=== PATIENT | male | born 1950 | race African-American/Black ===

== ENCOUNTER 2020-07-31 13:26 | Inpatient (IN) ==
[2020-07-31 13:51] LABS: Basophils % 0.1 % (0.0-0.8); Hematocrit 47.2 VOL% (42.0-52.0); Hemoglobin 15.5 GM/DL (14.0-18.0); Immature Granulocytes Absolute 0.11 #; Lymphocytes # 0.6 10*3/uL (1.4-4.0); Lymphocytes % 5.4 % (21.2-54.2); Mean Corpuscular HGB Conc 32.8 GM/DL (32-36); Mean Corpuscular Volume 87.9 FL (87-102); Mean Platelet Volume 11.7 FL (9.6-12.0); Neutrophils % 80.5 % (38.7-73.9); Platelet Count 245 T/CUMM (130-400); Red Blood Count 5.37 MC/CUMM (3.8-5.5); Red Cell Distribution Width 15.7 % (9.3-17.3); White Blood Count 11.2 T/CUMM (4-12)
[2020-07-31] MEDS ORDERED: SODIUM CHLORIDE 0.9% 1,000 ML IV STA ×2 (13:59→15:03)
[2020-07-31 14:33] LABS: Albumin 2.5 G/DL (3.4-5.0); Bilirubin,Total 0.8 MG/DL (0.2-1.0); Calcium 8.8 MG/DL (8.5-10.1); Total Protein 7.5 G/DL (6.4-8.3)
[2020-07-31 15:06] LABS: Osmolality,Calculated 378.1 MOS/KG (273-304)
[2020-07-31 15:24] LABS: INR 1.2; Partial Thromboplastin Time 27.4 SECS (23.9-33.8)
[2020-07-31] MEDS ORDERED: SODIUM BICARBONATE 50 MEQ/50 ML VIAL IV STA (15:41)
[2020-07-31] MEDS ORDERED: INSULIN REGULAR 100 UNIT/ML IV STA (15:41)
[2020-07-31] MEDS ORDERED: DEXTROSE 50% 25 GM/50 ML VIAL IV STA (15:41)
[2020-07-31] MEDS ORDERED: SODIUM CHLORIDE 0.9% 1,000 ML IV ONE (15:43)
[2020-07-31] MEDS ORDERED: ONDANSETRON 4 MG/2 ML VIAL IV PRN (15:48)
[2020-07-31] MEDS ORDERED: ACETAMINOPHEN 325 MG TABLET PO PRN (15:48)
[2020-07-31 15:50] LABS: Ferritin 945.7 ng/ml (26-388)
[2020-07-31] MEDS ORDERED: DEXTROSE 50% 25 GM/50 ML SYRINGE IV ONE (15:52)
[2020-07-31] MEDS ORDERED: GLUCAGON 1 MG VIAL IM PRN (15:54)
[2020-07-31] MEDS ORDERED: DEXTROSE 50% 25 GM/50 ML VIAL IV PRN (15:54)
[2020-07-31 15:55] LABS: Bilirubin,Urine Negative (Negative); Blood, Urine Moderate mg/dL (Negative); Glucose,Urine (UA) 150 mg/dL (Negative); Ketones,Urine Negative (Negative); Nitrite,Urine Negative (Negative); Protein,Urine >=500 MG/DL; RBC,Urine 40 /HPF (0-4); Squamous Epithelial Cell,Urine Occasional /HPF (0-10); Urine Appearance CLOUDY (Clear); Urine Color Amber (Yellow); Urine Urobilinogen < 2.0 EU/DL (0.2-1.0); WBC,Urine 5 /HPF (0-6)
[2020-07-31] MEDS ORDERED: CALCIUM GLUCONATE 2,000 MG in SODIUM CHLORIDE 0.9% 100 ML IV ONE (16:00)
[2020-07-31 16:37] LABS: Hepatitis B Core IgM Quant 0.21 Index; Hepatitis B Surface Ag Quant < 0.10 Index; Hepatitis B Surface Ag Result Negative (Negative); Hepatitis C Virus Ab Quant 0.05 Index; Hepatitis C Virus Ab Result Negative (Negative)
[2020-07-31] MEDS: SODIUM POLYSTYRENE SULFATE 15 GM/60 ML BOTTLE PO STA ×2 (17:01→17:55)
[2020-07-31] MEDS: INSULIN LISPRO 100 UNIT/ML SUBCUT SCH ×2 (18:03→21:22)
[2020-07-31] MEDS: SODIUM BICARB INJ 100 MEQ in STERILE WATER INJ 1,000 ML IV SCH (19:32)
[2020-07-31] MEDS: SODIUM CHLORIDE 0.9% 1,000 ML IV SCH (21:22)
[2020-07-31] MEDS: ENOXAPARIN 30 MG/0.3 ML SYRINGE SUBCUT SCH (21:22)
[2020-07-31 23:04] LABS: Calcium 8.4 MG/DL (8.5-10.1)
[2020-07-31 23:21] LABS: Osmolality,Calculated 357.6 MOS/KG (273-304)
[2020-08-01 05:55] LABS: Basophils % 0.2 % (0.0-0.8); Eosinophils % 0.1 % (0.00-10.9); Hematocrit 44.9 VOL% (42.0-52.0); Hemoglobin 14.5 GM/DL (14.0-18.0); Immature Granulocytes % 0.6 %; Immature Granulocytes Absolute 0.08 #; Lymphocytes # 0.6 10*3/uL (1.4-4.0); Lymphocytes % 4.8 % (21.2-54.2); Mean Corpuscular HGB Conc 32.3 GM/DL (32-36); Mean Corpuscular Volume 88.9 FL (87-102); Mean Platelet Volume 11.2 FL (9.6-12.0); Monocytes % 16.1 % (1.7-12.7); Neutrophils % 78.2 % (38.7-73.9); Platelet Count 165 T/CUMM (130-400); Red Blood Count 5.05 MC/CUMM (3.8-5.5); Red Cell Distribution Width 15.8 % (9.3-17.3); White Blood Count 12.7 T/CUMM (4-12)
[2020-08-01 06:51] LABS: Lymphocytes 10 % (20-55); Segmented Neutrophils 75 % (50-85); Total Cells Counted 100
[2020-08-01 06:52] LABS: Acanthocytes Few; Hypochromasia 1+; Microcytosis 1+; Ovalocytes Few
[2020-08-01 06:53] LABS: Platelet Estimate Adequate; Target Cells Slight
[2020-08-01] MEDS: INSULIN LISPRO 100 UNIT/ML SUBCUT SCH ×4 (08:00→21:08)
[2020-08-01] MEDS ORDERED: DEXTROSE 50% 25 GM/50 ML VIAL IV PRN (09:32)
[2020-08-01] MEDS ORDERED: GLUCAGON 1 MG VIAL IM PRN (09:32)
[2020-08-01] MEDS ORDERED: SODIUM BICARB INJ 50 MEQ in DEXTROSE 5% 1,000 ML IV SCH (10:00)
[2020-08-01] MEDS: SODIUM CHLORIDE 0.9% 1,000 ML IV SCH (10:14)
[2020-08-01 10:23] LABS: Calcium 8.3 MG/DL (8.5-10.1); Osmolality,Calculated 382.4 MOS/KG (273-304)
[2020-08-01] MEDS: PANTOPRAZOLE 40 MG VIAL IV SCH (10:53)
[2020-08-01 11:08] LABS: Basophils % 0.1 % (0.0-0.8); Eosinophils % 0.1 % (0.00-10.9); Hematocrit 38.1 VOL% (42.0-52.0); Hemoglobin 12.6 GM/DL (14.0-18.0); Immature Granulocytes % 0.8 %; Lymphocytes # 0.6 10*3/uL (1.4-4.0); Lymphocytes % 4.5 % (21.2-54.2); Mean Corpuscular HGB Conc 33.1 GM/DL (32-36); Mean Corpuscular Volume 87.6 FL (87-102); Mean Platelet Volume 10.2 FL (9.6-12.0); Monocytes % 15.2 % (1.7-12.7); Neutrophils % 79.3 % (38.7-73.9); Platelet Count 149 T/CUMM (130-400); Red Blood Count 4.35 MC/CUMM (3.8-5.5); Red Cell Distribution Width 15.8 % (9.3-17.3); White Blood Count 12.1 T/CUMM (4-12)
[2020-08-01 11:33] LABS: Hypochromasia 1+; Lymphocytes 9 % (20-55); Nucleated Red Blood Cells 2 (0-5); Segmented Neutrophils 84 % (50-85); Total Cells Counted 100
[2020-08-01 11:34] LABS: Acanthocytes Few; Microcytosis 1+; Ovalocytes Few; Platelet Estimate Adequate
[2020-08-01] MEDS: SODIUM BICARB INJ 100 MEQ in STERILE WATER INJ 1,000 ML IV SCH (11:48)
[2020-08-01] MEDS ORDERED: HEPARIN 10,000 UNIT/10 ML VIAL IV PRN (15:00)
[2020-08-01] MEDS ORDERED: SODIUM CHLORIDE 0.45% 1,000 ML IV ONE (16:00)
[2020-08-01] MEDS: MENTHOL/ZINC OXIDE OINT 71 GM JAR TOP SCH ×2 (17:00→21:16)
[2020-08-01] MEDS: ENOXAPARIN 30 MG/0.3 ML SYRINGE SUBCUT SCH (21:16)
[2020-08-02] MEDS: SODIUM BICARB INJ 100 MEQ in STERILE WATER INJ 1,000 ML IV SCH ×2 (02:58→20:22)
[2020-08-02 05:45] LABS: Basophils % 0.3 % (0.0-0.8); Eosinophils # 0.1 10*3/uL (0.0-0.87); Eosinophils % 0.5 % (0.00-10.9); Hematocrit 33.7 VOL% (42.0-52.0); Hemoglobin 11.5 GM/DL (14.0-18.0); Immature Granulocytes % 0.7 %; Immature Granulocytes Absolute 0.08 #; Lymphocytes # 0.8 10*3/uL (1.4-4.0); Mean Corpuscular HGB Conc 34.1 GM/DL (32-36); Mean Corpuscular Volume 85.1 FL (87-102); Mean Platelet Volume 11.5 FL (9.6-12.0); Monocytes % 21.1 % (1.7-12.7); Neutrophils % 70.4 % (38.7-73.9); Platelet Count 121 T/CUMM (130-400); Red Blood Count 3.96 MC/CUMM (3.8-5.5); Red Cell Distribution Width 14.7 % (9.3-17.3); White Blood Count 10.7 T/CUMM (4-12)
[2020-08-02 06:41] LABS: Albumin 1.9 G/DL (3.4-5.0); Bilirubin,Direct 0.33 MG/DL (0.0-0.20); Bilirubin,Indirect 1.3 MG/DL (0.0-1.0); Bilirubin,Total 1.6 MG/DL (0.2-1.0); Calcium 7.4 MG/DL (8.5-10.1); Osmolality,Calculated 350.4 MOS/KG (273-304); Total Protein 5.5 G/DL (6.4-8.3)
[2020-08-02 07:35] LABS: Band Neutrophils 4 % (0-10); Eosinophils 3 % (0-10); Lymphocytes 8 % (20-55); Ovalocytes Few; Platelet Estimate Decreased; Segmented Neutrophils 63 % (50-85); Total Cells Counted 100
[2020-08-02] MEDS: INSULIN LISPRO 100 UNIT/ML SUBCUT SCH ×4 (07:37→21:30)
[2020-08-02] MEDS: PANTOPRAZOLE 40 MG VIAL IV SCH (12:30)
[2020-08-02] MEDS: MENTHOL/ZINC OXIDE OINT 71 GM JAR TOP SCH ×2 (12:31→21:03)
[2020-08-02] MEDS: ENOXAPARIN 30 MG/0.3 ML SYRINGE SUBCUT SCH (21:03)
[2020-08-03 06:31] LABS: Basophils % 0.1 % (0.0-0.8); Eosinophils # 0.1 10*3/uL (0.0-0.87); Eosinophils % 0.4 % (0.00-10.9); Hematocrit 31.3 VOL% (42.0-52.0); Hemoglobin 10.4 GM/DL (14.0-18.0); Immature Granulocytes % 2.3 %; Immature Granulocytes Absolute 0.26 #; Lymphocytes # 0.8 10*3/uL (1.4-4.0); Lymphocytes % 7.1 % (21.2-54.2); Mean Corpuscular HGB Conc 33.2 GM/DL (32-36); Mean Corpuscular Volume 86.7 FL (87-102); Monocytes % 18.7 % (1.7-12.7); Neutrophils % 71.4 % (38.7-73.9); Platelet Count 94 T/CUMM (130-400); Red Blood Count 3.61 MC/CUMM (3.8-5.5); Red Cell Distribution Width 14.3 % (9.3-17.3); White Blood Count 11.4 T/CUMM (4-12)
[2020-08-03 06:53] LABS: Albumin 1.6 G/DL (3.4-5.0); Bilirubin,Total 1.5 MG/DL (0.2-1.0); Calcium 7.5 MG/DL (8.5-10.1); Osmolality,Calculated 329.8 MOS/KG (273-304); Total Protein 5.1 G/DL (6.4-8.3)
[2020-08-03 07:07] LABS: Anisocytosis 1+; Band Neutrophils 9 % (0-10); Burr Cells Few; Lymphocytes 8 % (20-55); Ovalocytes Few; Platelet Estimate Decreased; Segmented Neutrophils 63 % (50-85); Tear Drop Cells Few; Total Cells Counted 100
[2020-08-03] MEDS: INSULIN LISPRO 100 UNIT/ML SUBCUT SCH ×4 (07:43→22:01)
[2020-08-03] MEDS: MENTHOL/ZINC OXIDE OINT 71 GM JAR TOP SCH ×2 (08:17→22:01)
[2020-08-03] MEDS: PANTOPRAZOLE 40 MG VIAL IV SCH (08:17)
[2020-08-03] MEDS: SODIUM BICARB INJ 100 MEQ in STERILE WATER INJ 1,000 ML IV SCH (09:50)
[2020-08-03] MEDS ORDERED: METOPROLOL SUCCINATE 100 MG PO SCH (12:45)
[2020-08-03] MEDS: DEXTROSE 5% NACL 0.45% 1,000 ML IV SCH (12:50)
[2020-08-03] MEDS: carvediloL 6.25 MG TABLET PO SCH ×4 (13:56→22:14)
[2020-08-03] MEDS ORDERED: AMIODARONE INJ 150 MG in DEXTROSE 5% 100 ML IV ONE (14:00)
[2020-08-03] MEDS ORDERED: AMIODARONE INJ 450 MG in DEXTROSE 5% 241 ML IV SCH (14:30)
[2020-08-03] MEDS: APIXABAN 2.5 MG TABLET PO SCH ×3 (17:17→22:15)
[2020-08-03] MEDS: AMIODARONE INJ 450 MG in DEXTROSE 5% 241 ML IV SCH (18:25)
[2020-08-03] MEDS: ENOXAPARIN 30 MG/0.3 ML SYRINGE SUBCUT SCH (22:01)
[2020-08-04 06:38] LABS: Basophils % 0.2 % (0.0-0.8); Eosinophils # 0.1 10*3/uL (0.0-0.87); Eosinophils % 0.6 % (0.00-10.9); Hematocrit 33.2 VOL% (42.0-52.0); Immature Granulocytes % 1.9 %; Immature Granulocytes Absolute 0.22 #; Lymphocytes # 0.6 10*3/uL (1.4-4.0); Lymphocytes % 5.2 % (21.2-54.2); Mean Corpuscular HGB Conc 33.1 GM/DL (32-36); Mean Corpuscular Volume 86.9 FL (87-102); Monocytes % 22.4 % (1.7-12.7); Neutrophils % 69.7 % (38.7-73.9); Platelet Count 78 T/CUMM (130-400); Red Blood Count 3.82 MC/CUMM (3.8-5.5); Red Cell Distribution Width 13.9 % (9.3-17.3); White Blood Count 11.5 T/CUMM (4-12)
[2020-08-04 07:11] LABS: Albumin 1.5 G/DL (3.4-5.0); Bilirubin,Total 1.8 MG/DL (0.2-1.0); Calcium 7.6 MG/DL (8.5-10.1); Total Protein 5.4 G/DL (6.4-8.3)
[2020-08-04 07:36] LABS: Osmolality,Calculated 328.5 MOS/KG (273-304)
[2020-08-04 08:48] LABS: Band Neutrophils 4 % (0-10); Lymphocytes 4 % (20-55); Platelet Estimate Decreased; Segmented Neutrophils 68 % (50-85); Total Cells Counted 100
[2020-08-04 08:49] LABS: Anisocytosis 1+; Giant Platelets Few; Ovalocytes Few; Tear Drop Cells Few
[2020-08-04] MEDS: FOLIC ACID 0.4 MG TABLET PO SCH (08:54)
[2020-08-04] MEDS: MENTHOL/ZINC OXIDE OINT 71 GM JAR TOP SCH ×2 (08:54→21:27)
[2020-08-04] MEDS: carvediloL 6.25 MG TABLET PO SCH ×2 (08:54→21:30)
[2020-08-04] MEDS: MULTIVITAMIN (BEROCCA) TABLET PO SCH (08:54)
[2020-08-04] MEDS: APIXABAN 2.5 MG TABLET PO SCH ×2 (08:54→21:28)
[2020-08-04] MEDS: ASPIRIN CHEW 81 MG TABLET PO SCH (08:54)
[2020-08-04] MEDS: INSULIN LISPRO 100 UNIT/ML SUBCUT SCH ×4 (08:55→21:29)
[2020-08-04] MEDS: PANTOPRAZOLE 40 MG VIAL IV SCH (08:55)
[2020-08-04] MEDS: DEXTROSE 5% NACL 0.45% 1,000 ML IV SCH (14:00)
[2020-08-04] MEDS: AMIODARONE INJ 450 MG in DEXTROSE 5% 241 ML IV SCH (14:00)
[2020-08-04] MEDS: ENOXAPARIN 30 MG/0.3 ML SYRINGE SUBCUT SCH (21:29)
[2020-08-05] MEDS: AMIODARONE INJ 450 MG in DEXTROSE 5% 241 ML IV SCH (02:50)
[2020-08-05 06:07] LABS: Albumin 1.4 G/DL (3.4-5.0); Bilirubin,Total 1.7 MG/DL (0.2-1.0); Calcium 7.6 MG/DL (8.5-10.1); Osmolality,Calculated 308.7 MOS/KG (273-304); Total Protein 5.3 G/DL (6.4-8.3)
[2020-08-05] MEDS: INSULIN LISPRO 100 UNIT/ML SUBCUT SCH ×4 (08:43→22:06)
[2020-08-05] MEDS ORDERED: AMIODARONE 200 MG TABLET PO SCH (09:00)
[2020-08-05] MEDS: FOLIC ACID 0.4 MG TABLET PO SCH (09:09)
[2020-08-05] MEDS: APIXABAN 2.5 MG TABLET PO SCH ×2 (09:09→21:15)
[2020-08-05] MEDS: ASPIRIN CHEW 81 MG TABLET PO SCH (09:09)
[2020-08-05] MEDS: MULTIVITAMIN (BEROCCA) TABLET PO SCH (09:09)
[2020-08-05] MEDS: AMIODARONE 200 MG TABLET PO SCH (09:09)
[2020-08-05] MEDS: MENTHOL/ZINC OXIDE OINT 71 GM JAR TOP SCH ×2 (09:10→21:17)
[2020-08-05] MEDS: carvediloL 6.25 MG TABLET PO SCH ×2 (09:10→21:16)
[2020-08-05] MEDS: PANTOPRAZOLE 40 MG VIAL IV SCH (09:10)
[2020-08-05] MEDS: DOCUSATE SODIUM 100 MG CAPSULE PO SCH ×2 (11:06→21:16)
[2020-08-05] MEDS: DEXTROSE 5% NACL 0.45% 1,000 ML IV SCH ×2 (11:08→14:04)
[2020-08-05] MEDS: PHENOL 1.4% THROAT SPRAY 177 ML BOTTLE PO PRN ×3 (12:25→18:14)
[2020-08-06 05:47] LABS: INR 1.1; PT Patient Result 12.1 SECS (9.8-11.9)
[2020-08-06 08:11] LABS: Basophils % 0.2 % (0.0-0.8); Eosinophils # 0.1 10*3/uL (0.0-0.87); Eosinophils % 1.2 % (0.00-10.9); Hematocrit 30.3 VOL% (42.0-52.0); Immature Granulocytes % 1.4 %; Immature Granulocytes Absolute 0.13 #; Lymphocytes # 1.1 10*3/uL (1.4-4.0); Lymphocytes % 11.7 % (21.2-54.2); Mean Corpuscular Volume 88.6 FL (87-102); Mean Platelet Volume 13.4 FL (9.6-12.0); Monocytes % 18.4 % (1.7-12.7); Neutrophils % 67.1 % (38.7-73.9); Platelet Count 89 T/CUMM (130-400); Red Blood Count 3.42 MC/CUMM (3.8-5.5); Red Cell Distribution Width 13.5 % (9.3-17.3); White Blood Count 9.3 T/CUMM (4-12)
[2020-08-06 08:24] LABS: Albumin 1.5 G/DL (3.4-5.0); Bilirubin,Total 1.3 MG/DL (0.2-1.0); Calcium 7.6 MG/DL (8.5-10.1); Osmolality,Calculated 310.8 MOS/KG (273-304); Total Protein 5.3 G/DL (6.4-8.3)
[2020-08-06 08:49] LABS: Hypochromasia 3+; Lymphocytes 4 % (20-55); Ovalocytes Few; Platelet Estimate Decreased; Polychromasia Slight; Schistocytes Few; Segmented Neutrophils 82 % (50-85); Tear Drop Cells Few; Total Cells Counted 100
[2020-08-06] MEDS: INSULIN LISPRO 100 UNIT/ML SUBCUT SCH ×4 (10:00→21:08)
[2020-08-06] MEDS: PANTOPRAZOLE 40 MG VIAL IV SCH (13:47)
[2020-08-06] MEDS: carvediloL 6.25 MG TABLET PO SCH ×2 (13:47→21:11)
[2020-08-06] MEDS: APIXABAN 2.5 MG TABLET PO SCH ×2 (13:47→21:27)
[2020-08-06] MEDS: ASPIRIN CHEW 81 MG TABLET PO SCH (14:00)
[2020-08-06] MEDS: MENTHOL/ZINC OXIDE OINT 71 GM JAR TOP SCH ×3 (14:01→21:27)
[2020-08-06] MEDS: MULTIVITAMIN (BEROCCA) TABLET PO SCH (14:01)
[2020-08-06] MEDS: DOCUSATE SODIUM 100 MG CAPSULE PO SCH ×2 (14:01→21:26)
[2020-08-06] MEDS: FOLIC ACID 0.4 MG TABLET PO SCH (14:02)
[2020-08-06] MEDS: NYSTATIN 500,000 UNIT/5 ML UDCUP SWISH/SWAL SCH ×4 (14:02→21:27)
[2020-08-06] MEDS: AMIODARONE 200 MG TABLET PO SCH (14:04)
[2020-08-07 05:30] LABS: Basophils % 0.2 % (0.0-0.8); Eosinophils # 0.1 10*3/uL (0.0-0.87); Hematocrit 30.2 VOL% (42.0-52.0); Hemoglobin 9.9 GM/DL (14.0-18.0); Immature Granulocytes % 1.3 %; Immature Granulocytes Absolute 0.13 #; Lymphocytes # 1.1 10*3/uL (1.4-4.0); Lymphocytes % 10.7 % (21.2-54.2); Mean Corpuscular HGB Conc 32.8 GM/DL (32-36); Mean Corpuscular Volume 89.1 FL (87-102); Mean Platelet Volume 13.6 FL (9.6-12.0); Monocytes % 19.5 % (1.7-12.7); Neutrophils % 67.3 % (38.7-73.9); Platelet Count 95 T/CUMM (130-400); Red Blood Count 3.39 MC/CUMM (3.8-5.5); Red Cell Distribution Width 13.3 % (9.3-17.3); White Blood Count 9.9 T/CUMM (4-12)
[2020-08-07 05:58] LABS: Calcium 7.7 MG/DL (8.5-10.1); Osmolality,Calculated 299.4 MOS/KG (273-304)
[2020-08-07 06:14] LABS: Band Neutrophils 2 % (0-10); Eosinophils 1 % (0-10); Hypochromasia 1+; Lymphocytes 5 % (20-55); Segmented Neutrophils 71 % (50-85); Total Cells Counted 100
[2020-08-07 06:15] LABS: Microcytosis 1+; Ovalocytes Few; Platelet Estimate Decreased
[2020-08-07] MEDS: ASPIRIN CHEW 81 MG TABLET PO SCH (09:14)
[2020-08-07] MEDS: carvediloL 6.25 MG TABLET PO SCH ×2 (09:15→20:02)
[2020-08-07] MEDS: MENTHOL/ZINC OXIDE OINT 71 GM JAR TOP SCH (09:15)
[2020-08-07] MEDS: APIXABAN 2.5 MG TABLET PO SCH ×2 (09:15→20:26)
[2020-08-07] MEDS: INSULIN LISPRO 100 UNIT/ML SUBCUT SCH ×4 (09:15→20:02)
[2020-08-07] MEDS: NYSTATIN 500,000 UNIT/5 ML UDCUP SWISH/SWAL SCH ×4 (09:16→20:26)
[2020-08-07] MEDS: PANTOPRAZOLE 40 MG VIAL IV SCH (09:16)
[2020-08-07] MEDS: DOCUSATE SODIUM 100 MG CAPSULE PO SCH ×2 (10:00→20:25)
[2020-08-07] MEDS: MULTIVITAMIN (BEROCCA) TABLET PO SCH (10:00)
[2020-08-07] MEDS: FOLIC ACID 0.4 MG TABLET PO SCH (10:00)
[2020-08-07 14:02] LABS: ABG Base Excess -0.2 MMOL/L (-2.5-2.5); ABG HCO3 24.2 MMOL/L (20-26); ABG Oxygen Saturation 94.3 % (95-100); ABG PCO2 37.5 MM HG (35-48); ABG PH 7.416 (7.35-7.45); ABG TCO2 21.8 MMOL/L (23-27); Allen Test Positive
[2020-08-08] MEDS: MENTHOL/ZINC OXIDE OINT 71 GM JAR TOP SCH ×3 (01:59→21:38)
[2020-08-08 05:52] LABS: Basophils % 0.2 % (0.0-0.8); Eosinophils # 0.1 10*3/uL (0.0-0.87); Eosinophils % 1.1 % (0.00-10.9); Hematocrit 30.9 VOL% (42.0-52.0); Immature Granulocytes % 1.5 %; Immature Granulocytes Absolute 0.15 #; Lymphocytes # 1.1 10*3/uL (1.4-4.0); Lymphocytes % 11.3 % (21.2-54.2); Mean Corpuscular HGB Conc 32.4 GM/DL (32-36); Mean Corpuscular Volume 90.4 FL (87-102); Mean Platelet Volume 13.3 FL (9.6-12.0); Monocytes % 17.8 % (1.7-12.7); Neutrophils % 68.1 % (38.7-73.9); Platelet Count 119 T/CUMM (130-400); Red Blood Count 3.42 MC/CUMM (3.8-5.5); Red Cell Distribution Width 13.3 % (9.3-17.3); White Blood Count 9.8 T/CUMM (4-12)
[2020-08-08 06:49] LABS: Albumin 1.6 G/DL (3.4-5.0); Bilirubin,Total 1.8 MG/DL (0.2-1.0); Calcium 7.7 MG/DL (8.5-10.1); Osmolality,Calculated 307.3 MOS/KG (273-304); Total Protein 5.7 G/DL (6.4-8.3)
[2020-08-08 07:00] LABS: Band Neutrophils 1 % (0-10); Eosinophils 2 % (0-10); Hypochromasia Slight; Lymphocytes 17 % (20-55); Platelet Estimate Normal; Segmented Neutrophils 69 % (50-85); Total Cells Counted 100
[2020-08-08] MEDS ORDERED: ALBUTEROL 2.5 MG/3 ML NEB RESP TX PRN (07:45)
[2020-08-08] MEDS ORDERED: [UNRECOGNIZED DRUG - OTHER] PO SCH (09:00)
[2020-08-08] MEDS ORDERED: ceFAZolin 2,000 MG in PREMIX 1 EACH IV ONE (09:41)
[2020-08-08] MEDS: INSULIN LISPRO 100 UNIT/ML SUBCUT SCH ×4 (10:07→21:39)
[2020-08-08] MEDS: MULTIVITAMIN (BEROCCA) TABLET PO SCH (10:07)
[2020-08-08] MEDS: FOLIC ACID 0.4 MG TABLET PO SCH (10:07)
[2020-08-08] MEDS: APIXABAN 2.5 MG TABLET PO SCH ×2 (10:08→21:39)
[2020-08-08] MEDS: NYSTATIN 500,000 UNIT/5 ML UDCUP SWISH/SWAL SCH ×4 (10:08→21:39)
[2020-08-08] MEDS: ASPIRIN CHEW 81 MG TABLET PO SCH (10:08)
[2020-08-08] MEDS: DOCUSATE SODIUM 100 MG CAPSULE PO SCH ×2 (10:08→21:38)
[2020-08-08] MEDS: carvediloL 6.25 MG TABLET PO SCH ×2 (10:08→21:38)
[2020-08-08] MEDS: PANTOPRAZOLE 40 MG VIAL IV SCH (10:09)
[2020-08-08] MEDS: ATORVASTATIN 20 MG TABLET PO SCH (11:43)
[2020-08-08] MEDS: COLCHICINE 0.6 MG CAPSULE PO SCH (11:44)
[2020-08-08] MEDS: hydrALAZINE 25 MG TABLET PO SCH ×2 (11:44→21:38)
[2020-08-09 06:13] LABS: Basophils % 0.2 % (0.0-0.8); Eosinophils # 0.2 10*3/uL (0.0-0.87); Eosinophils % 1.7 % (0.00-10.9); Hematocrit 30.3 VOL% (42.0-52.0); Hemoglobin 9.9 GM/DL (14.0-18.0); Immature Granulocytes Absolute 0.09 #; Lymphocytes % 10.4 % (21.2-54.2); Mean Corpuscular HGB Conc 32.7 GM/DL (32-36); Mean Corpuscular Volume 89.1 FL (87-102); Monocytes % 15.7 % (1.7-12.7); Platelet Count 132 T/CUMM (130-400); Red Cell Distribution Width 13.3 % (9.3-17.3); White Blood Count 9.3 T/CUMM (4-12)
[2020-08-09 06:53] LABS: Albumin 1.6 G/DL (3.4-5.0); Bilirubin,Total 1.1 MG/DL (0.2-1.0); Calcium 7.7 MG/DL (8.5-10.1); Osmolality,Calculated 314.3 MOS/KG (273-304); Total Protein 5.8 G/DL (6.4-8.3)
[2020-08-09] MEDS ORDERED: LIDOCAINE 1% 20 ML VIAL ONE (07:09)
[2020-08-09] MEDS ORDERED: HEPARIN 5,000 UNIT/1 ML VIAL ONE (07:09)
[2020-08-09] MEDS ORDERED: BUPIVACAINE MPF 0.25% 30 ML VIAL ONE (07:09)
[2020-08-09] MEDS ORDERED: propofoL 200 MG/20 ML VIAL IV ONE (07:19)
[2020-08-09] MEDS ORDERED: LIDOCAINE 2% 5 ML VIAL ONE (07:19)
[2020-08-09] MEDS ORDERED: MIDAZOLAM 2 MG/2 ML VIAL ONE (07:20)
[2020-08-09] MEDS ORDERED: fentaNYL 100 MCG/2 ML VIAL ONE (07:20)
[2020-08-09 07:27] LABS: Lymphocytes 10 % (20-55); Segmented Neutrophils 80 % (50-85); Total Cells Counted 100
[2020-08-09 07:28] LABS: Hypochromasia 1+; Microcytosis 1+; Ovalocytes Few; Platelet Estimate Adequate; Tear Drop Cells Slight
[2020-08-09] MEDS ORDERED: ceFAZolin 1,000 MG VIAL ONE ×2 (08:14)
[2020-08-09] MEDS: PANTOPRAZOLE 40 MG VIAL IV SCH (10:06)
[2020-08-09] MEDS: MENTHOL/ZINC OXIDE OINT 71 GM JAR TOP SCH ×2 (10:07→20:51)
[2020-08-09] MEDS: INSULIN LISPRO 100 UNIT/ML SUBCUT SCH ×4 (10:16→20:51)
[2020-08-09] MEDS: NYSTATIN 500,000 UNIT/5 ML UDCUP SWISH/SWAL SCH ×4 (12:46→20:51)
[2020-08-09] MEDS: carvediloL 6.25 MG TABLET PO SCH ×2 (12:47→20:49)
[2020-08-09] MEDS: FOLIC ACID 0.4 MG TABLET PO SCH (12:47)
[2020-08-09] MEDS: DOCUSATE SODIUM 100 MG CAPSULE PO SCH ×2 (12:47→20:51)
[2020-08-09] MEDS: APIXABAN 2.5 MG TABLET PO SCH ×2 (12:47→20:49)
[2020-08-09] MEDS: ASPIRIN CHEW 81 MG TABLET PO SCH (12:47)
[2020-08-09] MEDS: MULTIVITAMIN (BEROCCA) TABLET PO SCH (12:47)
[2020-08-09] MEDS: COLCHICINE 0.6 MG CAPSULE PO SCH (12:47)
[2020-08-09] MEDS: hydrALAZINE 25 MG TABLET PO SCH (12:48)
[2020-08-09] MEDS: ATORVASTATIN 20 MG TABLET PO SCH (12:48)
[2020-08-10 05:54] LABS: Basophils % 0.3 % (0.0-0.8); Eosinophils # 0.2 10*3/uL (0.0-0.87); Eosinophils % 2.4 % (0.00-10.9); Hematocrit 27.6 VOL% (42.0-52.0); Hemoglobin 8.7 GM/DL (14.0-18.0); Immature Granulocytes % 1.6 %; Lymphocytes # 1.2 10*3/uL (1.4-4.0); Lymphocytes % 18.2 % (21.2-54.2); Mean Corpuscular HGB Conc 31.5 GM/DL (32-36); Mean Corpuscular Volume 90.2 FL (87-102); Monocytes % 22.5 % (1.7-12.7); Platelet Count 123 T/CUMM (130-400); Red Blood Count 3.06 MC/CUMM (3.8-5.5); Red Cell Distribution Width 13.3 % (9.3-17.3); White Blood Count 6.4 T/CUMM (4-12)
[2020-08-10 06:21] LABS: Albumin 1.4 G/DL (3.4-5.0); Bilirubin,Total 1.6 MG/DL (0.2-1.0); Calcium 7.3 MG/DL (8.5-10.1); Osmolality,Calculated 300.4 MOS/KG (273-304); Total Protein 5.3 G/DL (6.4-8.3)
[2020-08-10 07:19] LABS: Band Neutrophils 1 % (0-10); Eosinophils 2 % (0-10); Lymphocytes 18 % (20-55); Myelocytes 1 %; Segmented Neutrophils 56 % (50-85); Total Cells Counted 100
[2020-08-10 07:20] LABS: Hypochromasia 1+; Ovalocytes 2+; Platelet Estimate Decreased
[2020-08-10] MEDS: INSULIN LISPRO 100 UNIT/ML SUBCUT SCH ×4 (09:10→22:17)
[2020-08-10] MEDS: COLCHICINE 0.6 MG CAPSULE PO SCH (09:33)
[2020-08-10] MEDS: MULTIVITAMIN (BEROCCA) TABLET PO SCH (09:33)
[2020-08-10] MEDS: ASPIRIN CHEW 81 MG TABLET PO SCH (09:33)
[2020-08-10] MEDS: carvediloL 6.25 MG TABLET PO SCH ×2 (09:33→21:50)
[2020-08-10] MEDS: FOLIC ACID 0.4 MG TABLET PO SCH (09:33)
[2020-08-10] MEDS: PANTOPRAZOLE 40 MG VIAL IV SCH (09:33)
[2020-08-10] MEDS: NYSTATIN 500,000 UNIT/5 ML UDCUP SWISH/SWAL SCH ×4 (09:34→22:16)
[2020-08-10] MEDS: ATORVASTATIN 20 MG TABLET PO SCH (09:34)
[2020-08-10] MEDS: DOCUSATE SODIUM 100 MG CAPSULE PO SCH ×2 (09:34→21:50)
[2020-08-10] MEDS: APIXABAN 2.5 MG TABLET PO SCH ×2 (09:34→21:50)
[2020-08-10] MEDS: MENTHOL/ZINC OXIDE OINT 71 GM JAR TOP SCH ×2 (09:46→21:50)
[2020-08-11] MEDS: NYSTATIN 500,000 UNIT/5 ML UDCUP SWISH/SWAL SCH ×4 (08:41→21:20)
[2020-08-11] MEDS: PANTOPRAZOLE 40 MG VIAL IV SCH (08:41)
[2020-08-11] MEDS: INSULIN LISPRO 100 UNIT/ML SUBCUT SCH ×4 (08:41→20:33)
[2020-08-11] MEDS: FOLIC ACID 0.4 MG TABLET PO SCH (08:42)
[2020-08-11] MEDS: MULTIVITAMIN (BEROCCA) TABLET PO SCH (08:42)
[2020-08-11] MEDS: ASPIRIN CHEW 81 MG TABLET PO SCH (08:42)
[2020-08-11] MEDS: DOCUSATE SODIUM 100 MG CAPSULE PO SCH ×2 (08:42→21:20)
[2020-08-11] MEDS: APIXABAN 2.5 MG TABLET PO SCH ×2 (08:42→21:20)
[2020-08-11] MEDS: ATORVASTATIN 20 MG TABLET PO SCH (08:42)
[2020-08-11] MEDS: COLCHICINE 0.6 MG CAPSULE PO SCH (08:42)
[2020-08-11] MEDS: carvediloL 6.25 MG TABLET PO SCH (08:43)
[2020-08-11] MEDS: MENTHOL/ZINC OXIDE OINT 71 GM JAR TOP SCH ×2 (09:42→21:20)
[2020-08-11] MEDS ORDERED: SODIUM CHLORIDE 0.9% 250 ML IV ONE (16:09)
[2020-08-12 06:00] LABS: Basophils % 0.5 % (0.0-0.8); Eosinophils # 0.2 10*3/uL (0.0-0.87); Eosinophils % 1.9 % (0.00-10.9); Hemoglobin 8.9 GM/DL (14.0-18.0); Immature Granulocytes Absolute 0.08 #; Lymphocytes # 1.6 10*3/uL (1.4-4.0); Lymphocytes % 21.1 % (21.2-54.2); Mean Corpuscular HGB Conc 31.8 GM/DL (32-36); Mean Corpuscular Volume 92.1 FL (87-102); Mean Platelet Volume 11.7 FL (9.6-12.0); Monocytes % 19.9 % (1.7-12.7); Neutrophils % 55.6 % (38.7-73.9); Platelet Count 110 T/CUMM (130-400); Red Blood Count 3.04 MC/CUMM (3.8-5.5); Red Cell Distribution Width 13.5 % (9.3-17.3); White Blood Count 7.8 T/CUMM (4-12)
[2020-08-12 06:37] LABS: Calcium 7.4 MG/DL (8.5-10.1); Osmolality,Calculated 296.3 MOS/KG (273-304)
[2020-08-12 06:38] LABS: Band Neutrophils 1 % (0-10); Eosinophils 1 % (0-10); Hypochromasia 1+; Lymphocytes 15 % (20-55); Microcytosis 1+; Ovalocytes Slight; Platelet Estimate Decreased; Segmented Neutrophils 70 % (50-85); Total Cells Counted 100
[2020-08-12 08:12] VITALS: BP 119/65
[2020-08-12] MEDS: COLCHICINE 0.6 MG CAPSULE PO SCH (09:37)
[2020-08-12] MEDS: DOCUSATE SODIUM 100 MG CAPSULE PO SCH (09:37)
[2020-08-12] MEDS: ASPIRIN CHEW 81 MG TABLET PO SCH (09:37)
[2020-08-12] MEDS: FOLIC ACID 0.4 MG TABLET PO SCH (09:38)
[2020-08-12] MEDS: APIXABAN 2.5 MG TABLET PO SCH (09:38)
[2020-08-12] MEDS: ATORVASTATIN 20 MG TABLET PO SCH (09:38)
[2020-08-12] MEDS: MULTIVITAMIN (BEROCCA) TABLET PO SCH (09:38)
[2020-08-12] MEDS: MENTHOL/ZINC OXIDE OINT 71 GM JAR TOP SCH (09:38)
[2020-08-12] MEDS: INSULIN LISPRO 100 UNIT/ML SUBCUT SCH (09:39)
[2020-08-12] MEDS: PANTOPRAZOLE 40 MG VIAL IV SCH (09:43)
[2020-08-12] MEDS: NYSTATIN 500,000 UNIT/5 ML UDCUP SWISH/SWAL SCH (09:49)
== END 2020-08-12 14:58 | DRG 673 ==
LOC: N.ED 13:26 → SUATTDRO 15:48 → N.EDINP 15:48 → N.ICU 16:23 → N.5E 08-01 17:39 → N.TELES 08-03 13:27
PROVIDERS: ADMIT Internal Medicine; ATTEND Family Medicine

== ENCOUNTER 2020-08-21 20:09 | Observation (INO) ==
[2020-08-21] MEDS ORDERED: ONDANSETRON 4 MG/2 ML VIAL IV PRN (22:00)
[2020-08-21] MEDS ORDERED: MORPHINE 4 MG/1 ML VIAL IV PRN (22:00)
[2020-08-21] MEDS ORDERED: NICOTINE 21 MG/24 HR PATCH TRANSDERM PRN (22:00)
[2020-08-21] MEDS ORDERED: DEXTROSE 50% 25 GM/50 ML VIAL IV PRN (22:00)
[2020-08-21] MEDS ORDERED: GLUCAGON 1 MG VIAL IM PRN (22:00)
[2020-08-21 23:30] LABS: Basophils # 0.1 10*3/uL (0.0-0.2); Basophils % 0.7 % (0.0-0.8); Eosinophils # 0.1 10*3/uL (0.0-0.87); Eosinophils % 1.7 % (0.00-10.9); Hematocrit 30.2 VOL% (42.0-52.0); Hemoglobin 9.2 GM/DL (14.0-18.0); Immature Granulocytes % 0.7 %; Immature Granulocytes Absolute 0.05 #; Lymphocytes # 1.4 10*3/uL (1.4-4.0); Lymphocytes % 20.1 % (21.2-54.2); Mean Corpuscular HGB Conc 30.5 GM/DL (32-36); Mean Corpuscular Volume 96.8 FL (87-102); Mean Platelet Volume 10.8 FL (9.6-12.0); Monocytes % 17.7 % (1.7-12.7); Neutrophils % 59.1 % (38.7-73.9); Platelet Count 211 T/CUMM (130-400); Red Blood Count 3.12 MC/CUMM (3.8-5.5); Red Cell Distribution Width 13.5 % (9.3-17.3); White Blood Count 7.1 T/CUMM (4-12)
[2020-08-21 23:48] LABS: Bilirubin,Total 0.6 MG/DL (0.2-1.0); Calcium 8.2 MG/DL (8.5-10.1); Osmolality,Calculated 292.7 MOS/KG (273-304); Total Protein 6.4 G/DL (6.4-8.3)
[2020-08-22 00:03] LABS: Band Neutrophils 4 % (0-10); Eosinophils 2 % (0-10); Hypochromasia Slight; Lymphocytes 14 % (20-55); Platelet Estimate Normal; Segmented Neutrophils 68 % (50-85); Total Cells Counted 100
[2020-08-22] MEDS ORDERED: PANTOPRAZOLE 40 MG VIAL IV SCH (09:00)
[2020-08-22] MEDS: PANTOPRAZOLE 40 MG TABLET PO SCH (09:35)
[2020-08-22] MEDS: INSULIN REGULAR 100 UNIT/ML SUBCUT SCH ×4 (09:36→20:38)
[2020-08-22] MEDS ORDERED: HEPARIN 10,000 UNIT/10 ML VIAL IV SCH (11:30)
[2020-08-23] MEDS: INSULIN REGULAR 100 UNIT/ML SUBCUT SCH ×2 (08:42→12:04)
[2020-08-23] MEDS: PANTOPRAZOLE 40 MG TABLET PO SCH (09:37)
[2020-08-23 11:04] LABS: Basophils % 0.6 % (0.0-0.8); Eosinophils # 0.1 10*3/uL (0.0-0.87); Eosinophils % 1.7 % (0.00-10.9); Hematocrit 28.6 VOL% (42.0-52.0); Hemoglobin 8.8 GM/DL (14.0-18.0); Immature Granulocytes % 1.1 %; Immature Granulocytes Absolute 0.08 #; Lymphocytes # 1.6 10*3/uL (1.4-4.0); Lymphocytes % 21.4 % (21.2-54.2); Mean Corpuscular HGB Conc 30.8 GM/DL (32-36); Mean Corpuscular Volume 95.7 FL (87-102); Mean Platelet Volume 10.7 FL (9.6-12.0); Monocytes % 19.6 % (1.7-12.7); Neutrophils % 55.6 % (38.7-73.9); Platelet Count 199 T/CUMM (130-400); Red Blood Count 2.99 MC/CUMM (3.8-5.5); Red Cell Distribution Width 13.7 % (9.3-17.3); White Blood Count 7.3 T/CUMM (4-12)
[2020-08-23 11:24] LABS: Hypochromasia 2+; Lymphocytes 16 % (20-55); Microcytosis 1+; Ovalocytes Slight; Platelet Estimate Adequate; Segmented Neutrophils 66 % (50-85); Total Cells Counted 100
[2020-08-23 12:14] VITALS: BP 132/76
== END 2020-08-23 15:31 | disposition home or self-care (01) ==
LOC: EDUNIT# → EDBD → N.ED 20:09 → INTOOBSV 22:00 → N.EDINP 22:00 → SUATTDRO 22:00 → N.TELEN 23:40
PROVIDERS: ADMIT Internal Medicine; ATTEND Internal Medicine Geriatric Medicine